=== PATIENT | female | born 1990 | race Caucasian/White ===

== ENCOUNTER 2023-10-14 14:51 | Emergency (ER) | payer MEDICAID ==
[~2023-10-14] VITALS: Ht 160 cm; Wt 91.0 kg
[2023-10-14 15:17] VITALS: O2SAT 97
[2023-10-14] MEDS ORDERED: PERM60CR4 TP (15:53)
[2023-10-14 16:13] VITALS: BP 120/78; PULSE 84; RESP 16; TEMP 98.5
== END 2023-10-14 16:14 | disposition home or self-care (01) ==
LOC: ER 15:04
DX: S40.861A Insect bite (nonvenomous) of right upper arm, initial encounter (principal); S30.860A Insect bite (nonvenomous) of lower back and pelvis, initial encounter; S60.460A Insect bite (nonvenomous) of right index finger, initial encounter; W57.XXXA Bitten or stung by nonvenomous insect and other nonvenomous arthropods, initial encounter; Y93.89 Activity, other specified; Y92.89 Other specified places as the place of occurrence of the external cause; Y99.8 Other external cause status
CPT/HCPCS: 99282